=== PATIENT | male | born 1950 | race Caucasian/White ===

== ENCOUNTER 2016-09-29 11:42 | Emergency (ER) | payer OTHER ==
[~2016-09-29] VITALS: Ht 185.4 cm; Wt 135.0 kg
[~2016-09-29 11:42] MED LIST: CINN500C7 PO; CLIN1CAP5 PO; DEXA4TAB PO; FISH1000 PO; GNP400TA4 PO; IMOD2TAB PO; LISI-363 PO; METF-324 PO; MULTTAB50 PO; NORV10TA PO; NOVO7030P2 SQ; PERC5TAB12 PO; SIMV10TA PO; TRAM50 PO; VITA-13 PO
[2016-09-29 11:45] VITALS: BP 183/98; PULSE 95; RESP 16; TEMP 98.2; O2SAT 95
--- NOTE | 2016-09-29 12:24 | PD ---
HPI Chief Complaint: Cardiac Complaint Time Seen by Provider: 12:15 Travel History International Travel<30 days: No Contact w/Intl Traveler<30days: No Traveled to known affect area: No History of Present Illness HPI 66-year-old male with history of diabetes, hypertension, sleep apnea who presents for evaluation. He reports over the past 1.5 months he has had upper respiratory symptoms including cough and congestion. He was seen by his primary care physician at the [facility] 3 weeks ago and started on azithromycin. The cough improved but has persisted. He continues to have a cough with occasional sputum production. He now reports over the past week he has had an intermittent fluttering sensation in the center of his chest and says that center of his chest "just doesn't feel right." He would not describe it as a pain or pressure just a uncomfortable sensation and a fluttering sensation. The symptoms are intermittent, lasting for a few seconds at a time and occurring several times an hour for the past week. He called the [facility] today and was instructed to come here. No history of arrhythmia, coronary artery disease. He has never worn a Holter monitor. He denies any shortness of breath , fevers or chills, abdominal pain, nausea or vomiting. No other complaints. PFSH Past Medical History Asthma: No Anxiety: Yes Heart Rhythm Problems: No Cancer: No Cardiovascular Problems: Yes High Cholesterol: Yes Chest Pain: No Congestive Heart Failure: No COPD: No Diabetes: Yes Endocrine: Yes Genitourinary: No Hypertension: Yes Immune Disorder: No Musculoskeletal: No Neurologic: No Psychiatric: No Reproductive: No Respiratory: Yes Sleep Apnea: Yes Thyroid Disease: No Triglycerides - High: Yes Past Surgical History Cholecystectomy: Yes Tonsillectomy: Yes Social History Alcohol Use: No Tobacco Use: Yes Substance Use: No Allergies-Medications (Allergen,Severity, Reaction): Coded Allergies: Contrast Media (Verified Allergy, Severe, Anaphylaxis, 09/29/16) Iodine (Verified Allergy, Severe, Anaphylaxis, 09/29/16) Penicillin (Verified Allergy, Unknown, Anaphylaxis, 09/29/16) Reported Meds & Prescriptions Reported Meds & Active Scripts Active Reported Flonase Nasal [place] (Fluticasone Nasal [place]) 50 Mcg/Act [place] 2 [place] EACH NARE DAILY PRN Vitamin C (Ascorbic Acid) 500 Mg Tab 500 Mg PO DAILY Fish Oil 1000 mg ([place]-3 Fatty Acids) 1 Cap Cap 1,000 Mg PO DAILY Multi Vitamin (Multiple Vitamin) 1 Tab Tab 1 Tab PO DAILY Garlic 400 Mg Tab 400 Mg PO DAILY Cinnamon 500 Mg Tab 500 Mg PO DAILY Vitamin D3 (Cholecalciferol) 1,000 Unit Tab 1,000 Units PO DAILY Simvastatin 20 Mg Tab 10 Mg PO HS Lisinopril 20 Mg Tab 20 Mg PO BID Novolog Mix 70-30 Inj (Insulin Aspart Prota 70%/Aspart 30%) 1,000 Unit/10 Ml Vial 70 Units SQ BID Metformin (Metformin HCl) 500 Mg Tab 1,000 Mg PO BID With meals Review of Systems Except as stated in HPI: all other systems reviewed are Neg Physical Exam Narrative GENERAL: Pleasant well-developed well-nourished male in no acute distress SKIN: Warm and dry. HEAD: Atraumatic. Normocephalic. EYES: Pupils equal and round. No scleral icterus. No injection or drainage. ENT: No nasal bleeding or discharge. Mucous membranes pink and moist. NECK: Trachea midline. No JVD. CARDIOVASCULAR: Regular rate and rhythm. No murmur appreciated. RESPIRATORY: No accessory muscle use. Clear to auscultation. Breath sounds equal bilaterally. GASTROINTESTINAL: Abdomen soft, non-tender, nondistended. Hepatic and splenic margins not palpable. MUSCULOSKELETAL: No obvious deformities. No clubbing. No cyanosis. No edema. NEUROLOGICAL: Awake and alert. No obvious cranial nerve deficits. Motor grossly within normal limits. Normal speech. PSYCHIATRIC: Appropriate mood and affect; insight and judgment normal. Data Data Last Documented VS Vital Signs Date Time Temp Pulse Resp B/P Pulse Ox O2 Delivery O2 Flow Rate FiO2 09/29/16 12:36 94 Room Air 09/29/16 11:45 98.2 95 16 183/98 Orders Electrocardiogram (09/29/16 11:51) Basic Metabolic Panel (Bmp) (09/29/16 12:18) Ckmb (Isoenzyme) Profile (09/29/16 12:18) Complete Blood Count With Diff (09/29/16 12:18) Magnesium (Mg) (09/29/16 12:18) Troponin I (09/29/16 12:18) Chest, Single Ap (09/29/16 12:18) CKMB (09/29/16 12:20) CKMB% (09/29/16 12:20) Labs Laboratory Tests Test 09/29/16 12:20 White Blood Count 7.7 TH/MM3 Red Blood Count 4.51 MIL/MM3 Hemoglobin 13.4 GM/DL Hematocrit 40.3 % Mean Corpuscular Volume 89.3 FL Mean Corpuscular Hemoglobin 29.7 PG Mean Corpuscular Hemoglobin 33.2 % Concent Red Cell Distribution Width 15.1 % Platelet Count 167 TH/MM3 Mean Platelet Volume 6.9 FL Neutrophils (%) (Auto) 58.5 % Lymphocytes (%) (Auto) 30.8 % Monocytes (%) (Auto) 7.8 % Eosinophils (%) (Auto) 2.2 % Basophils (%) (Auto) 0.7 % Neutrophils # (Auto) 4.5 TH/MM3 Lymphocytes # (Auto) 2.4 TH/MM3 Monocytes # (Auto) 0.6 TH/MM3 Eosinophils # (Auto) 0.2 TH/MM3 Basophils # (Auto) 0.1 TH/MM3 CBC Comment DIFF FINAL Differential Comment Sodium Level 138 MEQ/L Potassium Level 3.9 MEQ/L Chloride Level 101 MEQ/L Carbon Dioxide Level 27.6 MEQ/L Anion Gap 9 MEQ/L Blood Urea Nitrogen 10 MG/DL Creatinine 0.94 MG/DL Estimat Glomerular Filtration 81 ML/MIN Rate Random Glucose 209 MG/DL Calcium Level 9.0 MG/DL Magnesium Level 2.0 MG/DL Total Creatine Kinase 122 U/L Creatine Kinase MB 7.8 NG/ML Troponin I LESS THAN 0.02 NG/ML MDM Medical Decision Making Medical Screen Exam Complete: Yes Emergency Medical Condition: Yes Medical Record Reviewed: Yes Differential Diagnosis PVCs, PAC's, heart block, atrial fibrillation, atrial flutter, electrolyte abnormality, bronchitis, pneumonia Narrative Course This is a 66-year-old male who has had an improving cough for the past 1.5 months now with 1 week of an uncomfortable sensation in the center of his chest which she can best describe as a fluttering type of sensation that lasts intermittently. The patient was initially seen in triage were protocol labs and EKG were ordered. The patient will be moved to a medical bed when one becomes available. Naman Villaseñor Sep 29, 2016 12:24
[2016-09-29 12:46] LABS: AUTOMATED NEUTROPHIL # 4.5 TH/MM3 (1.8-7.7); BASOPHIL # 0.1 TH/MM3 (0-0.2); BASOPHIL % 0.7 % (0.0-2.0); EOSINOPHIL # 0.2 TH/MM3 (0-0.4); EOSINOPHIL % 2.2 % (0.0-4.0); HEMATOCRIT 40.3 % (39.0-51.0); HEMO FLAGS DIFF FINAL; LYMPH % 30.8 % (9.0-44.0); LYMPHOCYTE # 2.4 TH/MM3 (1.0-4.8); MEAN CELL VOLUME 89.3 FL (80.0-100.0); MEAN CORPUSCULAR HEMOGLOBIN 29.7 PG (27.0-34.0); MEAN CORPUSCULAR HGB CONC 33.2 % (32.0-36.0); MONO % 7.8 % (0.0-8.0); NEUT % 58.5 % (16.0-70.0); PLATELET COUNT 167 TH/MM3 (150-450); RED BLOOD COUNT 4.51 MIL/MM3 (4.50-5.90); RED CELL DISTRIBUTION WIDTH 15.1 % (11.6-17.2); WHITE BLOOD COUNT 7.7 TH/MM3 (4.0-11.0)
[2016-09-29] MEDS ORDERED: FLUT1SPR5 EACH NARE (12:59)
[2016-09-29] MEDS ORDERED: LISI-515 PO (12:59)
[2016-09-29] MEDS ORDERED: SIMV20TA PO (12:59)
[2016-09-29] MEDS ORDERED: VITA100018 PO (12:59)
[2016-09-29] MEDS ORDERED: MULT-135 PO (12:59)
[2016-09-29] MEDS ORDERED: VITA500T PO (12:59)
[2016-09-29] MEDS ORDERED: METF500T PO (12:59)
[2016-09-29] MEDS ORDERED: NOVOLOGMXP SQ (12:59)
[2016-09-29] MEDS ORDERED: CINN500T PO (12:59)
[2016-09-29] MEDS ORDERED: GARL400T PO (12:59)
[2016-09-29] MEDS ORDERED: FISH100020 PO (12:59)
[2016-09-29 13:04] LABS: ANION GAP 9 MEQ/L (5-15); BICARBONATE 27.6 MEQ/L (21.0-32.0); BLOOD UREA NITROGEN 10 MG/DL (7-18); CHLORIDE 101 MEQ/L (98-107); GLOMERULAR FILTRATION RATE 81 ML/MIN (>89); POTASSIUM 3.9 MEQ/L (3.5-5.1); SODIUM (NA) 138 MEQ/L (136-145)
--- NOTE | 2016-09-29 13:04 | RADRPT ---
EXAM DATE/TIME: 09/29/2016 12:26 [facility] COMPARISON: CHEST SINGLE AP, August 17, 2014, 7:29. INDICATIONS : Chest discomfort with palpitations and shortness of breath. MEDICAL HISTORY : Diabetes mellitus type II. SURGICAL HISTORY : Cholecystectomy. ENCOUNTER: Initial ACUITY: 1 day PAIN SCORE: 7/10 LOCATION: Bilateral chest FINDINGS: Heart is minimally enlarged. Pulmonary vascularity is normal. Minimal bibasilar parenchymal changes are noted. There is no pneumothorax. Mild degenerative changes are present about the right shoulde r. CONCLUSION: Cardiomegaly with minimal bibasilar parenchymal changes. There is no overt congestive failure. Alek Brown MD FACR on September 29, 2016 at 12:57 Board Certified Radiologist. This report was verified electronically.
[2016-09-29 13:09] LABS: CREATINE KINASE 122 U/L (39-308)
[2016-09-29 13:21] LABS: CKMB 7.8 NG/ML (0.5-3.6)
[2016-09-29 14:38] VITALS: BP 133/89; PULSE 78; RESP 18; O2SAT 96
--- NOTE | 2016-09-29 14:41 | PD ---
HPI Chief Complaint: Cardiac Complaint Time Seen by Provider: 12:44 Travel History International Travel<30 days: No Contact w/Intl Traveler<30days: No Traveled to known affect area: No History of Present Illness HPI 66-year-old male came to the emergency room with history of cough for past 1 month. Patient did a course of Z-Demetrius but since then he still feels like there is phlegm stuck in his throat. He is having shortness of breath when he is at rest. He has usual shortness of breath on exertion which he attributes to his overweight status. Patient says that he had loss 50 pounds last year after which she was doing great and his blood pressure, blood sugar and general health status was under good control. However he regained the weight and he is back on those medications. Patient has history of sleep apnea. Denies any chest pain this time. His primary care from [facility] asked him to come to the emergency room to be evaluated. Vital signs were stable. Patient was seen by the provider in triage and workup was started there. [facility] Past Medical History Narrative Medical List of his past medical, surgical, social and family history was reviewed from the nursing note. Asthma: No Anxiety: Yes Heart Rhythm Problems: No Cancer: No Cardiovascular Problems: Yes High Cholesterol: Yes Chest Pain: No Congestive Heart Failure: No COPD: No Diabetes: Yes Patient Takes Glucophage: Yes Endocrine: Yes Genitourinary: No Hypertension: Yes Immune Disorder: No Musculoskeletal: No Neurologic: No Psychiatric: No Reproductive: No Respiratory: Yes Sleep Apnea: Yes Thyroid Disease: No Triglycerides - High: Yes Tetanus Vaccination: Unknown Influenza Vaccination: No Past Surgical History Cholecystectomy: Yes Tonsillectomy: Yes Other Surgery: Yes Social History Alcohol Use: No Tobacco Use: Yes (quit last year) Substance Use: No Allergies-Medications (Allergen,Severity, Reaction): Coded Allergies: Contrast Media (Verified Allergy, Severe, Anaphylaxis, 09/29/16) Iodine (Verified Allergy, Severe, Anaphylaxis, 09/29/16) Penicillin (Verified Allergy, Unknown, Anaphylaxis, 09/29/16) Comments List of his allergies reviewed from the nursing note. Reported Meds & Prescriptions Reported Meds & Active Scripts Active Reported Flonase Nasal [place] (Fluticasone Nasal [place]) 50 Mcg/Act [place] 2 [place] EACH NARE DAILY PRN Vitamin C (Ascorbic Acid) 500 Mg Tab 500 Mg PO DAILY Fish Oil 1000 mg ([place]-3 Fatty Acids) 1 Cap Cap 1,000 Mg PO DAILY Multi Vitamin (Multiple Vitamin) 1 Tab Tab 1 Tab PO DAILY Garlic 400 Mg Tab 400 Mg PO DAILY Cinnamon 500 Mg Tab 500 Mg PO DAILY Vitamin D3 (Cholecalciferol) 1,000 Unit Tab 1,000 Units PO DAILY Simvastatin 20 Mg Tab 10 Mg PO HS Lisinopril 20 Mg Tab 20 Mg PO BID Novolog Mix 70-30 Inj (Insulin Aspart Prota 70%/Aspart 30%) 1,000 Unit/10 Ml Vial 70 Units SQ BID Metformin (Metformin HCl) 500 Mg Tab 1,000 Mg PO BID With meals Narrative Medication List of his home medications reviewed from the nursing note. Review of Systems Except as stated in HPI: all other systems reviewed are Neg Physical Exam Narrative GENERAL: Awake, alert, obese, no obvious distress SKIN: Warm and dry. HEAD: Atraumatic. Normocephalic. EYES: Pupils equal and round. No scleral icterus. No injection or drainage. ENT: No nasal bleeding or discharge. Mucous membranes pink and moist. NECK: Trachea midline. No JVD. CARDIOVASCULAR: Regular rate and rhythm. No murmur appreciated. RESPIRATORY: No accessory muscle use. Clear to auscultation. Breath sounds equal bilaterally. GASTROINTESTINAL: Abdomen soft, non-tender, nondistended. Hepatic and splenic margins not palpable. MUSCULOSKELETAL: No obvious deformities. No clubbing. No cyanosis. No edema. NEUROLOGICAL: Awake and alert. No obvious cranial nerve deficits. Motor grossly within normal limits. Normal speech. PSYCHIATRIC: Appropriate mood and affect; insight and judgment normal. Data Data Last Documented VS Vital Signs Date Time Temp Pulse Resp B/P Pulse Ox O2 Delivery O2 Flow Rate FiO2 09/29/16 14:38 78 18 133/89 96 Room Air 09/29/16 11:45 98.2 Orders Electrocardiogram (09/29/16 11:51) Basic Metabolic Panel (Bmp) (09/29/16 12:18) Ckmb (Isoenzyme) Profile (09/29/16 12:18) Complete Blood Count With Diff (09/29/16 12:18) Magnesium (Mg) (09/29/16 12:18) Troponin I (09/29/16 12:18) Chest, Single Ap (09/29/16 12:18) CKMB (09/29/16 12:20) CKMB% (09/29/16 12:20) B-Type Natriuretic Peptide (09/29/16 13:49) Labs Laboratory Tests Test 09/29/16 12:20 White Blood Count 7.7 TH/MM3 Red Blood Count 4.51 MIL/MM3 Hemoglobin 13.4 GM/DL Hematocrit 40.3 % Mean Corpuscular Volume 89.3 FL Mean Corpuscular Hemoglobin 29.7 PG Mean Corpuscular Hemoglobin 33.2 % Concent Red Cell Distribution Width 15.1 % Platelet Count 167 TH/MM3 Mean Platelet Volume 6.9 FL Neutrophils (%) (Auto) 58.5 % Lymphocytes (%) (Auto) 30.8 % Monocytes (%) (Auto) 7.8 % Eosinophils (%) (Auto) 2.2 % Basophils (%) (Auto) 0.7 % Neutrophils # (Auto) 4.5 TH/MM3 Lymphocytes # (Auto) 2.4 TH/MM3 Monocytes # (Auto) 0.6 TH/MM3 Eosinophils # (Auto) 0.2 TH/MM3 Basophils # (Auto) 0.1 TH/MM3 CBC Comment DIFF FINAL Differential Comment Sodium Level 138 MEQ/L Potassium Level 3.9 MEQ/L Chloride Level 101 MEQ/L Carbon Dioxide Level 27.6 MEQ/L Anion Gap 9 MEQ/L Blood Urea Nitrogen 10 MG/DL Creatinine 0.94 MG/DL Estimat Glomerular Filtration 81 ML/MIN Rate Random Glucose 209 MG/DL Calcium Level 9.0 MG/DL Magnesium Level 2.0 MG/DL Total Creatine Kinase 122 U/L Creatine Kinase MB 7.8 NG/ML Troponin I LESS THAN 0.02 NG/ML B-Type Natriuretic Peptide 7 PG/ML MDM Medical Decision Making Medical Screen Exam Complete: Yes Emergency Medical Condition: Yes Medical Record Reviewed: Yes Interpretation(s) Twelve-lead EKG was reviewed by me. Normal sinus rhythm, normal axis, nonspecific ST-T wave changes. Heart rate of 82 bpm. Differential Diagnosis CHF, pneumonia, bronchitis Narrative Course 2:39 PM all the blood tests including BNP are back and they're within normal limit. Chest x-rays within normal limit. I will discharge him home. I had a more than 5 minute discussion on weight loss, healthy lifestyle choices and benefits of exercise with the patient. He understands. I will discharge him home. Procedures EKG Prior to Arrival: Yes Diagnosis Primary Impression: Dyspnea Qualified Code: R06.02 - Shortness of breath Additional Impression: Overweight Referrals: Primary Care Physician 1 week Additional Instructions: Please return to the ER if the condition worsens or any other new concerns. Otherwise follow-up with your primary care. Med/Other Pt SpecificInfo: No Change to Meds Disposition: 01 DISCHARGE HOME Condition: Stable Evaristo Buchanan MD Sep 29, 2016 14:41
--- NOTE | 2016-09-30 14:49 | EKG ---
Date Performed: 09/29/2016 Time Performed: 11:58:35 PTAGE: 66 years EKG: Sinus rhythm Nonspecific T wave changes, but largely unchanged from prior tracing PREVIOUS TRACING : 02/03/2016 09.36 DOCTOR: Suresh Guzman Interpretating Date/Time 09/30/2016 14:45:08
== END 2016-09-29 14:48 | disposition home or self-care (01) ==
LOC: NEPA 11:42
DX: R06.02 Shortness of breath (principal); E66.3 Overweight; R09.89 Other specified symptoms and signs involving the circulatory and respiratory systems; R05 Cough; E11.9 Type 2 diabetes mellitus without complications; I10 Essential (primary) hypertension; G47.30 Sleep apnea, unspecified; E78.00 Pure hypercholesterolemia, unspecified; E78.1 Pure hyperglyceridemia; Z72.0 Tobacco use; Z79.84 Long term (current) use of oral hypoglycemic drugs; Z86.79 Personal history of other diseases of the circulatory system; Z87.09 Personal history of other diseases of the respiratory system; Z86.59 Personal history of other mental and behavioral disorders
CPT/HCPCS: 71010; 80048; 82550; 82552; 83735; 83880; 84484; 85025; 93005

== ENCOUNTER 2018-01-10 17:11 | Emergency (ER) | payer OTHER ==
[~2018-01-10] VITALS: Ht 185.4 cm; Wt 125.5 kg
[~2018-01-10 17:11] MED LIST changes: -CINN500C7 PO; +CINN500T PO; -CLIN1CAP5 PO; -DEXA4TAB PO; -FISH1000 PO; +FISH100020 PO; +FLUT1SPR5 EACH NARE; +GARL400T PO; -GNP400TA4 PO; -IMOD2TAB PO; -LISI-363 PO; +LISI-515 PO; -METF-324 PO; +METF500T PO; +MULT-135 PO; -MULTTAB50 PO; -NORV10TA PO; -NOVO7030P2 SQ; +NOVOLOGMXP SQ; -PERC5TAB12 PO; -SIMV10TA PO; +SIMV20TA PO; -TRAM50 PO; -VITA-13 PO; +VITA100018 PO; +VITA500T PO
[2018-01-10 17:15] VITALS: BP 185/85; PULSE 88; RESP 16; TEMP 97.5; O2SAT 96
[2018-01-10] MEDS ORDERED: LISI10TA3 PO (17:31)
[2018-01-10] MEDS ORDERED: SIMV40TA PO (17:31)
[2018-01-10] MEDS ORDERED: ATEN25TA PO (17:31)
[2018-01-10] MEDS ORDERED: OMEP20TA93 PO (17:31)
[2018-01-10] MEDS ORDERED: NOVOLOGMXP SQ (17:31)
[2018-01-10 17:33] VITALS: BP 162/76; PULSE 81; RESP 20; O2SAT 96
[2018-01-10] MEDS ORDERED: LISI-515 PO (17:38)
[2018-01-10 17:43] VITALS: BP_SYST 141; BP_SYST 153; BP_SYST 160; BP_DIAS 75; BP_DIAS 80; BP_DIAS 85; PULSE 77; RESP 20; O2SAT 96
[2018-01-10] MEDS ORDERED: GARL400T4 (17:43)
[2018-01-10] MEDS ORDERED: CINN500C2 PO (17:43)
[2018-01-10] MEDS ORDERED: SODIUM CHLORIDE 0.9% FLUSH 10 ML FLUSH IVF PRN (17:45)
--- NOTE | 2018-01-10 17:49 | PD ---
HPI Chief Complaint: Dizziness Time Seen by Provider: 17:22 Travel History International Travel<30 days: No Contact w/Intl Traveler<30days: No Traveled to known affect area: No History of Present Illness HPI The patient is a 67-year-old male who presents to the emergency department for near syncope. The patient states he recently started exercising and changed his diet. The patient has lost 20 pounds, intentionally, and his blood pressure has been coming down. The patient does have a history of hypertension and states he was taking lisinopril 40 mg twice a day. He started to have symptoms and cut his blood pressure medication to 40 mg once a day. He then lowered his blood pressure medication to one half a pill, 20 mg daily. However, he will intermittently have episodes where he feels lightheaded, feels like he is going to pass out, and will sit down. The patient's symptoms will resolve. They always occur while he is standing. He denies any palpitations, chest pain, shortness of breath, nausea, or vomiting. The patient has checked his blood pressure a few times and his systolic was in the 90s right after these occurrences. The patient states he also has a history of diabetes and has checked his sugars, however, his sugars are always greater than 100. He does note improvement in his blood sugars from the 200s to the high 100s after the weight loss. He denies any significant headache, focal deficits, or ataxia. He is currently asymptomatic upon arrival to the emergency department. He has been followed at the [facility] and recently had blood work performed, has an appointment Thursday concerning his blood work. PFSH Past Medical History Asthma: No Anxiety: Yes Heart Rhythm Problems: No Cancer: No Cardiovascular Problems: Yes High Cholesterol: Yes Chest Pain: No Congestive Heart Failure: No COPD: No Diabetes: Yes Patient Takes Glucophage: Yes Endocrine: Yes Genitourinary: No Hypertension: Yes Immune Disorder: No Musculoskeletal: No Neurologic: No Psychiatric: No Reproductive: No Respiratory: Yes Sleep Apnea: Yes Thyroid Disease: No Triglycerides - High: Yes Tetanus Vaccination: Unknown Influenza Vaccination: No Past Surgical History Cholecystectomy: Yes Tonsillectomy: Yes Other Surgery: Yes Social History Alcohol Use: No Tobacco Use: No (quit last year) Substance Use: No Allergies-Medications (Allergen,Severity, Reaction): Coded Allergies: diatrizoate meglumine (Unverified Allergy, Severe, Anaphylaxis, 01/10/18) gadobenic acid (Unverified Allergy, Severe, Anaphylaxis, 01/10/18) gadodiamide (Unverified Allergy, Severe, Anaphylaxis, 01/10/18) gadoteridol (Unverified Allergy, Severe, Anaphylaxis, 01/10/18) iodine (Unverified Allergy, Severe, Anaphylaxis, 01/10/18) iodixanol (Unverified Allergy, Severe, Anaphylaxis, 01/10/18) iohexol (Unverified Allergy, Severe, Anaphylaxis, 01/10/18) potassium iodide (Unverified Allergy, Severe, Anaphylaxis, 01/10/18) povidone-iodine (Unverified Allergy, Severe, Anaphylaxis, 01/10/18) sodium iodide (Unverified Allergy, Severe, Anaphylaxis, 01/10/18) sodium iodide (Unverified Allergy, Severe, Anaphylaxis, 01/10/18) penicillin G (Unverified Allergy, Unknown, Anaphylaxis, 01/10/18) Reported Meds & Prescriptions Reported Meds & Active Scripts Active Reported Garlique (Garlic) 5,000 Mcg Tab Eql Cinnamon (Cinnamon) 500 Mg Cap 1,000 Mg PO DAILY Lisinopril 20 Mg Tab 20 Mg PO BID Novolog Mix 70-30 Inj (Insulin Aspart Prota 70%/Aspart 30%) 1,000 Unit/10 Ml Vial 65 Units SQ BID Simvastatin 40 Mg Tab 40 Mg PO HS Atenolol 25 Mg Tab 25 Mg PO DAILY Omeprazole 20 Mg Tab 40 Mg PO DAILY Fish Oil 1000 mg ([place]-3 Fatty Acids) 1 Cap Cap 1,000 Mg PO DAILY Vitamin D3 (Cholecalciferol) 1,000 Unit Tab 1,000 Units PO DAILY Metformin (Metformin HCl) 500 Mg Tab 1,000 Mg PO BID With meals Review of Systems Except as stated in HPI: all other systems reviewed are Neg Eyes: No: Blurred Vision HENT: Positive: Lightheadedness, No: Headaches Cardiovascular: Positive: Syncope (Near-syncope), No: Chest Pain or Discomfort , Palpitations, Irregular Rhythm, Tachycardia, Diaphoresis Respiratory: No: Shortness of Breath Gastrointestinal: No: Nausea, Vomiting Musculoskeletal: No: Weakness, Edema Neurologic: Positive: Dizziness, Syncope (Near-syncope, denies actual LOC), No : Focal Abnormalities Physical Exam Narrative GENERAL: Awake, alert, very pleasant 67-year-old male who appears his stated age and is in no acute respiratory distress. SKIN: Focused skin assessment warm/dry. HEAD: Atraumatic. Normocephalic. EYES: No injection or drainage. Pupils are 3 mm bilateral and reactive. EOMs are intact. ENT: No nasal bleeding or discharge. Mucous membranes pink and moist. NECK: Trachea midline. No JVD. CARDIOVASCULAR: Regular rate and rhythm. No murmur appreciated. Heart rate in the 80s. RESPIRATORY: No accessory muscle use. Clear to auscultation. Breath sounds equal bilaterally. GASTROINTESTINAL: Abdomen soft, non-tender, nondistended. MUSCULOSKELETAL: No obvious deformities. No clubbing. No cyanosis. No edema. Positive dorsalis pedal pulses bilaterally. NEUROLOGICAL: Awake and alert. No obvious cranial nerve deficits. Motor grossly within normal limits. Normal speech. Nonfocal. Oriented x4. PSYCHIATRIC: Appropriate mood and affect; insight and judgment normal. Data Data Last Documented VS Vital Signs Date Time Temp Pulse Resp B/P (MAP) Pulse Ox O2 Delivery O2 Flow Rate FiO2 01/10/18 17:43 77 20 153/75 (101) 85 20 160/85 (110) 78 20 141/80 (100) 01/10/18 17:43 96 Room Air 01/10/18 17:15 97.5 Orders Orders Complete Blood Count With Diff (01/10/18 17:42) Comprehensive Metabolic Panel (01/10/18 17:42) Magnesium (Mg) (01/10/18 17:42) Ckmb (Isoenzyme) Profile (01/10/18 17:42) Troponin I (01/10/18 17:42) Ecg Monitoring (01/10/18 17:42) Iv Access Insert/Monitor (01/10/18 17:42) Oximetry (01/10/18 17:42) Sodium Chloride 0.9% Flush (Ns Flush) (01/10/18 17:45) Orthostatic Vital Signs (01/10/18 17:42) CKMB (01/10/18 17:45) CKMB% (01/10/18 17:45) Ed Discharge Order (01/10/18 18:45) Labs Laboratory Tests Test 01/10/18 17:45 White Blood Count 7.8 TH/MM3 Red Blood Count 4.15 MIL/MM3 Hemoglobin 13.4 GM/DL Hematocrit 38.4 % Mean Corpuscular Volume 92.4 FL Mean Corpuscular Hemoglobin 32.3 PG Mean Corpuscular Hemoglobin Concent 34.9 % Red Cell Distribution Width 13.7 % Platelet Count 199 TH/MM3 Mean Platelet Volume 7.3 FL Neutrophils (%) (Auto) 60.1 % Lymphocytes (%) (Auto) 28.6 % Monocytes (%) (Auto) 8.2 % Eosinophils (%) (Auto) 2.4 % Basophils (%) (Auto) 0.7 % Neutrophils # (Auto) 4.7 TH/MM3 Lymphocytes # (Auto) 2.2 TH/MM3 Monocytes # (Auto) 0.6 TH/MM3 Eosinophils # (Auto) 0.2 TH/MM3 Basophils # (Auto) 0.1 TH/MM3 CBC Comment DIFF FINAL Differential Comment Blood Urea Nitrogen 21 MG/DL Creatinine 1.00 MG/DL Random Glucose 102 MG/DL Total Protein 7.7 GM/DL Albumin 4.1 GM/DL Calcium Level 9.4 MG/DL Magnesium Level 1.8 MG/DL Alkaline Phosphatase 65 U/L Aspartate Amino Transf (AST/SGOT) 38 U/L Alanine Aminotransferase (ALT/SGPT) 53 U/L Total Bilirubin 0.4 MG/DL Sodium Level 139 MEQ/L Potassium Level 4.1 MEQ/L Chloride Level 103 MEQ/L Carbon Dioxide Level 25.8 MEQ/L Anion Gap 10 MEQ/L Estimat Glomerular Filtration Rate 75 ML/MIN Total Creatine Kinase 125 U/L Creatine Kinase MB 6.4 NG/ML Troponin I LESS THAN 0.02 NG/ML MDM Medical Decision Making Medical Screen Exam Complete: Yes Emergency Medical Condition: Yes Medical Record Reviewed: Yes Interpretation(s) EKG reveals a normal sinus rhythm with a rate 80, no ischemia or ectopy noted. Laboratory Tests Test 01/10/18 17:45 White Blood Count 7.8 TH/MM3 Red Blood Count 4.15 MIL/MM3 Hemoglobin 13.4 GM/DL Hematocrit 38.4 % Mean Corpuscular Volume 92.4 FL Mean Corpuscular Hemoglobin 32.3 PG Mean Corpuscular Hemoglobin Concent 34.9 % Red Cell Distribution Width 13.7 % Platelet Count 199 TH/MM3 Mean Platelet Volume 7.3 FL Neutrophils (%) (Auto) 60.1 % Lymphocytes (%) (Auto) 28.6 % Monocytes (%) (Auto) 8.2 % Eosinophils (%) (Auto) 2.4 % Basophils (%) (Auto) 0.7 % Neutrophils # (Auto) 4.7 TH/MM3 Lymphocytes # (Auto) 2.2 TH/MM3 Monocytes # (Auto) 0.6 TH/MM3 Eosinophils # (Auto) 0.2 TH/MM3 Basophils # (Auto) 0.1 TH/MM3 CBC Comment DIFF FINAL Differential Comment Blood Urea Nitrogen 21 MG/DL Creatinine 1.00 MG/DL Random Glucose 102 MG/DL Total Protein 7.7 GM/DL Albumin 4.1 GM/DL Calcium Level 9.4 MG/DL Magnesium Level 1.8 MG/DL Alkaline Phosphatase 65 U/L Aspartate Amino Transf (AST/SGOT) 38 U/L Alanine Aminotransferase (ALT/SGPT) 53 U/L Total Bilirubin 0.4 MG/DL Sodium Level 139 MEQ/L Potassium Level 4.1 MEQ/L Chloride Level 103 MEQ/L Carbon Dioxide Level 25.8 MEQ/L Anion Gap 10 MEQ/L Estimat Glomerular Filtration Rate 75 ML/MIN Total Creatine Kinase 125 U/L Creatine Kinase MB 6.4 NG/ML Troponin I LESS THAN 0.02 NG/ML Differential Diagnosis Differential diagnosis includes near syncope, orthostatic hypotension, medication side effect, TIA, CVA, arrhythmia, dehydration, electrolyte abnormality. Narrative Course IV was established, labs are drawn and sent, and the patient was placed on cardiac telemetry monitoring and continuous pulse oximetry monitoring. EKG was ordered and interpreted. Orthostatic vital signs were obtained. Orthostatic vital signs are unremarkable. EKG revealed a normal sinus rhythm with no evidence of ectopy or ischemia. The patient's hemoglobin and hematocrit are unremarkable, no evidence of symptomatic anemia. Electrolytes unremarkable. Troponin is less than 0.02. There is no evidence of ectopy on telemetry monitoring. The patient has an appointment on Thursday at the [place] [facility], he will be discharged with a copy of his labs. He is advised to return if symptoms are worsening or progress. He is also advised to decrease his lisinopril from 20 mg daily to 10 mg daily. Diagnosis Primary Impression: Near syncope Patient Instructions: General Instructions Additional Instructions: Please provide the patient a copy of his labs at discharge. Follow-up at the [facility] as previously directed. Cut your lisinopril in half from 20 mg to 10 mg daily. Return if symptoms worsen or progress. Med/Other Pt SpecificInfo: Prescription(s) given, Existing Med Changed ( Change your lisinopril from 20 mg daily to 10 mg daily.) Disposition: 01 DISCHARGE HOME Condition: Stable Alfred Bansal MD Jan 10, 2018 17:49
[2018-01-10 18:12] LABS: AUTOMATED NEUTROPHIL # 4.7 TH/MM3 (1.8-7.7); BASOPHIL # 0.1 TH/MM3 (0-0.2); BASOPHIL % 0.7 % (0.0-2.0); EOSINOPHIL # 0.2 TH/MM3 (0-0.4); EOSINOPHIL % 2.4 % (0.0-4.0); HEMATOCRIT 38.4 % (39.0-51.0); HEMOGLOBIN 13.4 GM/DL (13.0-17.0); LYMPH % 28.6 % (9.0-44.0); LYMPHOCYTE # 2.2 TH/MM3 (1.0-4.8); MEAN CELL VOLUME 92.4 FL (80.0-100.0); MEAN CORPUSCULAR HEMOGLOBIN 32.3 PG (27.0-34.0); MEAN CORPUSCULAR HGB CONC 34.9 % (32.0-36.0); MEAN PLATELET VOLUME 7.3 FL (7.0-11.0); MONO % 8.2 % (0.0-8.0); MONOCYTE # 0.6 TH/MM3 (0-0.9); NEUT % 60.1 % (16.0-70.0); PLATELET COUNT 199 TH/MM3 (150-450); RED BLOOD COUNT 4.15 MIL/MM3 (4.50-5.90); RED CELL DISTRIBUTION WIDTH 13.7 % (11.6-17.2); WHITE BLOOD COUNT 7.8 TH/MM3 (4.0-11.0)
[2018-01-10 18:29] LABS: ALT (GPT) 53 U/L (12-78)
[2018-01-10 18:32] LABS: ALBUMIN 4.1 GM/DL (3.4-5.0); AST (GOT) 38 U/L (15-37); BICARBONATE 25.8 MEQ/L (21.0-32.0); BLOOD UREA NITROGEN 21 MG/DL (7-18); CALCIUM 9.4 MG/DL (8.5-10.1); CHLORIDE 103 MEQ/L (98-107); GLOMERULAR FILTRATION RATE 75 ML/MIN (>89); GLUCOSE,RANDOM 102 MG/DL (74-106); MAGNESIUM 1.8 MG/DL (1.5-2.5); SODIUM (NA) 139 MEQ/L (136-145)
[2018-01-10 18:33] LABS: ALKALINE PHOSPHATASE 65 U/L (45-117); TOTAL BILIRUBIN ADULT 0.4 MG/DL (0.2-1.0); TOTAL PROTEIN 7.7 GM/DL (6.4-8.2); TROPONIN I LESS THAN 0.02 NG/ML (0.02-0.05)
--- NOTE | 2018-01-11 14:56 | EKG ---
Date Performed: 01/10/2018 Time Performed: 17:27:00 PTAGE: 67 years EKG: Sinus rhythm NORMAL ECG Since the PREVIOUS TRACING , no significant change noted PREVIOUS TRACIN.58 DOCTOR: Larry Pinto Interpretating Date/Time 01/11/2018 14:52:18
== END 2018-01-10 19:04 | disposition home or self-care (01) ==
LOC: NEPC 17:11
DX: R55 Syncope and collapse (principal); I10 Essential (primary) hypertension; E11.9 Type 2 diabetes mellitus without complications; E78.2 Mixed hyperlipidemia; F41.9 Anxiety disorder, unspecified; Z88.0 Allergy status to penicillin; Z88.8 Allergy status to other drugs, medicaments and biological substances; Z79.84 Long term (current) use of oral hypoglycemic drugs; Z79.4 Long term (current) use of insulin; Z79.899 Other long term (current) drug therapy
CPT/HCPCS: 80053; 82550; 82552; 83735; 84484; 85025; 93005